=== PATIENT | male | born 1970 | race Caucasian/White ===

== ENCOUNTER 2021-12-31 14:34 | Emergency (ER) | payer OTHER ==
[~2021-12-31] VITALS: Ht 170.2 cm; Wt 65.8 kg
[2021-12-31 14:43] VITALS: BP_SYST 168
--- NOTE | 2021-12-31 14:45 | NUR ---
PT REMAINS ON [facility]. STABLE
--- NOTE | 2021-12-31 15:14 | NUR ---
MD MAYA AT BEDSIDE ASSESSING PT.
[2021-12-31] MEDS ORDERED: NACL 0.9% 1,000 ML IV ONE (15:15)
[2021-12-31] MEDS ORDERED: ONDANSETRON HCL 4 MG/2 ML VIAL IVP ONE (15:30)
[2021-12-31] MEDS ORDERED: MORPHINE 4 MG INJ. 4 MG/ML VIAL IVP ONE (15:30)
[2021-12-31 15:43] LABS: BILIRUBIN,URINE NEGATIVE (NEGATIVE); CLARITY/URINE CLEAR (CLEAR); COLOR,URINE YELLOW (YELLOW); GLUCOSE,URINE 3+ (NEGATIVE); KETONES,URINE 1+ (NEGATIVE); LEUKOCYTE ESTERASE ,URINE NEGATIVE (NEGATIVE); NITRITE, URINE NEGATIVE (NEGATIVE); PH,URINE 5.5 (5.0-8.0); PROTEIN URINE NEGATIVE (NEGATIVE); UROBILINOGEN,URINE 0.2 (0.2-1.0)
[2021-12-31 15:56] LABS: BLOOD, URINE TRACE (NEGATIVE)
[2021-12-31 16:01] LABS: BACTERIA,URINE None Seen /HPF (None Seen); RBC,URINE 0-3 /HPF (0-3); WBC,URINE NONE SEEN /HPF (0-3)
[2021-12-31 16:02] LABS: MUCUS,URINE None Seen /LPF (None Seen)
[2021-12-31 16:04] LABS: BASOPHILS # (AUTO) 0.1 K/uL (0.0-0.2); BASOPHILS % (AUTO) 0.6 % (0.0-2.0); HEMATOCRIT 41.5 % (36-54); HEMOGLOBIN 14.1 g/dL (14.0-18.0); LYMPHOCYTES # (AUTO) 0.8 K/uL (1.0-5.5); LYMPHOCYTES % (AUTO) 5.2 % (20.5-51.5); MEAN CORPUSCULAR HEMOGLOBIN 28 pg (27-31); MEAN CORPUSCULAR HGB CONC 34 % (32-36); MEAN CORPUSCULAR VOLUME 84 fL (79.0-98.0); MONOCYTES # (AUTO) 0.3 K/uL (0.0-1.0); MONOCYTES % (AUTO) 1.9 % (1.7-9.3); NEUTROPHILS % (AUTO) 92.3 % (40.0-70.0); PLATELET COUNT (AUTO) 290 K/uL (130-430); RED BLOOD CELL COUNT(AUTO) 4.97 MIL/uL (4.2-6.2); RED CELL DISTRIBUTION WIDTH 12.8 % (9.0-15.0); WHITE BLOOD COUNT (AUTO) 15.2 K/uL (4.8-10.8)
[2021-12-31 16:10] LABS: CALCIUM 8.4 mg/dL (8.4-11.0); CREATININE 1.05 mg/dL (0.55-1.30); POTASSIUM 3.5 mmol/L (3.5-5.1)
[2021-12-31 16:15] LABS: ALBUMIN 4.1 g/dL (3.4-4.8); TOTAL BILIRUBIN 0.6 mg/dL (0.0-1.0)
[2021-12-31] MEDS ORDERED: METOCLOPRAMIDE HCL 10 MG/2 ML VIAL IVP ONE (16:15)
[2021-12-31] MEDS ORDERED: DIPHENHYDRAMINE INJ 50 MG/ML VIAL IVP ONE (16:15)
[2021-12-31 16:35] LABS: BARBITURATE, URINE NEGATIVE (NEG <=200); BENZODIAZEPINE, URINE NEGATIVE (NEG <=150); CANNABINOID, URINE POSITIVE (NEG <=50); COCAINE, URINE NEGATIVE (NEG <=150); METHAMPHETAMINES SCREEN,URINE NEGATIVE (NEG <=500); OPIATE, URINE NEGATIVE (NEG <=100); PHENCYCLIDINE SCREEN,URINE NEGATIVE (NEG <=25); UR TRICYCLIC ANTIDEPRESSANTS NEGATIVE (NEG <=300); URINE AMPHETAMINE NEGATIVE (NEG <=500); URINE METHADONE NEGATIVE (NEG <=200); URINE OXYCODONE SCREEN NEGATIVE (NEG <=100); URINE PROPOXYPHENE SCREEN NEGATIVE (NEG <=300)
--- NOTE | 2021-12-31 17:06 | NUR ---
ALL MEDICATIONS FOR PAIN AND NAUSEA GIVEN. PT POSITIVE FOR CANNABIS ON UDS. PT DENIED ANY DRUG USE DURING TRIAGE.
--- NOTE | 2021-12-31 18:34 | NUR ---
A/OX4 VSS FAMILY AT BEDSIDE AMBULATED TO RESTROOM WITH STEADY GAIT
[2021-12-31] MEDS ORDERED: METO-290 PO (20:25)
[2021-12-31] MEDS ORDERED: DIPH25CA83 PO (20:25)
[2021-12-31] MEDS ORDERED: INSULIN REGULAR, HUMAN 10 UNITS/0.1 ML INJ IVP ONE (20:30)
[2021-12-31] MEDS ORDERED: HYDR-3921 PO (20:32)
--- NOTE | 2021-12-31 20:50 | NUR ---
Patient does not wish to proceed with medical care recommended by FR[facility]ESCO. Patient given information related to possible complications, up to and including , which could occur as a result of leaving hospital at this time. Patient verbalizes understanding of risks involved leaving against medical advice. Patient has signed AMA form.
[2021-12-31] MEDS: MORPHINE 4 MG INJ. 4 MG/ML VIAL IVP ONE ×2 (21:22→21:25)
[2021-12-31 21:25] VITALS: BP_SYST 145
--- NOTE | 2021-12-31 21:25 | NUR ---
Patient given written and verbal discharge instructions and verbalizes understanding. ER MD MAYA discussed with patient the results and treatment provided. Patient in stable condition. ID arm band removed. IV catheter removed intact and dressing applied, no active bleeding. Rx of BENADRYL, NORCO, AND REGLAN given. Patient educated on pain management and to follow up with PMD. Pain Scale 2/10. Opportunity for questions provided and answered. Medication side effect fact sheet provided.
== END 2021-12-31 21:25 | disposition left against medical advice (07) ==
LOC: SED 14:34
DX: R10.9 Unspecified abdominal pain (principal); R11.2 Nausea with vomiting, unspecified; E11.65 Type 2 diabetes mellitus with hyperglycemia; E86.0 Dehydration; Z79.899 Other long term (current) drug therapy
CPT/HCPCS: 36415; 74176; 76376; 80053; 80307; 81000; 82962; 83690; 85025; 96361; 96374; 96375; 96376; 99284; J1200; J2270; J2405; J2765; J7030; J1815